=== PATIENT | male | born 1980 | race Caucasian/White ===

== ENCOUNTER → 2022-01-08 09:56 | Outpatient (BNVA) | payer MEDICAID, SELFPAY | PROVIDERS: Visit Provider Internal Medicine | DX: R76.8 Other specified abnormal immunological findings in serum (principal); M54.2 Cervicalgia; Z11.59 Encounter for screening for other viral diseases; Z11.1 Encounter for screening for respiratory tuberculosis | CPT/HCPCS: 36415; 72040; 72072; 72100; 73120; 82310; 82550; 82607; 82728; 83540; 83735; 83970; 84100; 84443; 84550; 86480; 86704; 86803; 87340; 99204 ==

== ENCOUNTER → 2022-01-25 08:23 | Outpatient (BNVA) | payer MEDICAID, SELFPAY | PROVIDERS: PCP Physician Assistant; Visit Provider Internal Medicine | DX: M79.18 Myalgia, other site (principal); M54.2 Cervicalgia; F17.220 Nicotine dependence, chewing tobacco, uncomplicated; R76.8 Other specified abnormal immunological findings in serum; M10.9 Gout, unspecified; Z79.899 Other long term (current) drug therapy | CPT/HCPCS: 20553; 99205; 99214 ==

== ENCOUNTER → 2022-02-19 10:03 | Outpatient (BNVA) | payer MEDICAID, SELFPAY | PROVIDERS: PCP Physician Assistant; Visit Provider Anesthesiology Pain Medicine | DX: M54.2 Cervicalgia (principal); M54.81 Occipital neuralgia; F17.220 Nicotine dependence, chewing tobacco, uncomplicated | CPT/HCPCS: 99213; 99214 ==

== ENCOUNTER → 2022-03-21 09:21 | Outpatient (BNVA) | payer MEDICAID, SELFPAY | PROVIDERS: PCP Physician Assistant; Visit Provider Anesthesiology Pain Medicine | DX: M48.02 Spinal stenosis, cervical region (principal); M54.9 Dorsalgia, unspecified; M79.18 Myalgia, other site | CPT/HCPCS: 20553; 99214 ==

== ENCOUNTER → 2022-05-24 12:19 | Outpatient (BNVA) | payer MEDICAID, SELFPAY | PROVIDERS: PCP Physician Assistant; Referring Provider Physician Assistant; Visit Provider Specialist | DX: G43.019 Migraine without aura, intractable, without status migrainosus (principal); R20.2 Paresthesia of skin | CPT/HCPCS: 99204 ==

== ENCOUNTER → 2022-06-20 08:54 | Outpatient (BNVA) | payer MEDICAID, SELFPAY | PROVIDERS: PCP Physician Assistant; Visit Provider Anesthesiology Pain Medicine | DX: M54.2 Cervicalgia (principal) | CPT/HCPCS: 99214 ==

== ENCOUNTER → 2022-11-30 08:07 | Outpatient (BNVA) | payer MEDICAID, SELFPAY | PROVIDERS: PCP Physician Assistant; Visit Provider Specialist | DX: G43.019 Migraine without aura, intractable, without status migrainosus (principal); R20.2 Paresthesia of skin; M50.90 Cervical disc disorder, unspecified, unspecified cervical region; H91.8X9 Other specified hearing loss, unspecified ear | CPT/HCPCS: 99213 ==